=== PATIENT | female | born 1970 | race African-American/Black ===

== ENCOUNTER 2020-10-11 16:07 | Emergency (ER) | payer BC ==
[2020-10-11] MEDS ORDERED: Ketorolac Tromethamine 30 MG/ML VIAL ONE (17:02)
== END 2020-10-11 18:40 | disposition home or self-care (01) ==
LOC: ERS 16:07
DX: M54.41 Lumbago with sciatica, right side (principal); I10 Essential (primary) hypertension
CPT/HCPCS: 96372; 99283; J1885